=== PATIENT | female | born 1985 | race Two or more races ===

== ENCOUNTER 2017-06-05 13:43 | Inpatient (IN) | payer MEDICAID, MEDICARE ==
[~2017-06-05] VITALS: Ht 152.4 cm; Wt 50.8 kg
[2017-06-05] MEDS ORDERED: MORPHINE SULFATE 2 MG/1 ML DISP.SYRIN IV ONE (14:15)
[2017-06-05] MEDS ORDERED: ONDANSETRON 4 MG/2 ML VIAL IV ONE (14:15)
[2017-06-05] MEDS ORDERED: IV NORMAL SALINE 1000 ML BAG IV ONE ×2 (14:15→20:45)
[2017-06-05] MEDS ORDERED: PANTOPRAZOLE SODIUM 40 MG VIAL IV ONE (14:15)
[2017-06-05] MEDS ORDERED: MORPHINE SULFATE 4 MG/1 ML DISP.SYRIN ONE (14:39)
[2017-06-05] MEDS ORDERED: ONDANSETRON 4 MG/2 ML VIAL ONE (14:40)
[2017-06-05] MEDS ORDERED: PANTOPRAZOLE SODIUM 40 MG VIAL ONE (14:41)
[2017-06-05 14:46] LABS: BASOPHILS % (AUTO) 0.2 % (0.0-2.0); EOSINOPHILS % (AUTO) 0.3 % (0.0-7.0); HEMOGLOBIN 13.1 g/dL (10.9-14.3); LYMPHOCYTES # (AUTO) 0.8 K/uL (20.0-40.0); LYMPHOCYTES % (AUTO) 6.3 % (20.5-51.5); MEAN CORPUSCULAR HGB CONC 31 g/dL (32.3-35.6); MEAN CORPUSCULAR VOLUME 79.9 fL (75.5-95.3); MONOCYTES # (AUTO) 0.7 K/uL (2.0-10.0); NEUTROPHILS # (AUTO) 11.4 K/uL (1.8-8.9); NEUTROPHILS % (AUTO) 88.2 % (38.5-71.5); PLATELET COUNT (AUTO) 468 K/uL (179-408); RED BLOOD CELL COUNT(AUTO) 5.25 MIL/uL (3.63-4.92); WHITE BLOOD COUNT (AUTO) 12.9 K/uL (3.8-11.8)
[2017-06-05 14:57] LABS: CREATININE 1.3 mg/dL (0.6-1.3); POTASSIUM 4.2 mmol/L (3.5-5.1)
[2017-06-05 15:07] LABS: BILIRUBIN,DIRECT 0.1 mg/dL (0.0-0.2); BILIRUBIN,TOTAL 0.4 mg/dL (0.2-1.0); TOTAL PROTEIN, SERUM 9.2 g/dL (6.4-8.2)
[2017-06-05 21:30] LABS: *BILIRUBIN,URIN NEGATIVE (NEGATIVE); *BLOOD, URINE NEGATIVE (NEGATIVE); *CLARITY,URINE SLIGHTLY CLOUDY (CLEAR); *COLOR,URINE YELLOW (YELLOW); *KETONES,URINE NEGATIVE (NEGATIVE); *PROTEIN,URINE 1+ (NEGATIVE); *UROBILINOGEN,URINE 0.2 E.U./dl (NORMAL); LEUKOCYTE ESTERASE ,URINE 1+ (NEGATIVE); NITRITE, URINE NEGATIVE (NEGATIVE); PH,URINE 5.5 (5.0-8.0); UGLUCOSE NEGATIVE (NEGATIVE)
--- NOTE | 2017-06-05 21:46 | NUR ---
MSE COMPLETED, ADMIT ORDER WRITTEN, BELONGINGS LIST DONE, SBAR REPT TO [facility]-2ND FLOOR.
[2017-06-05 22:01] LABS: BACTERIA,URINE FEW /HPF (NONE SEEN); MUCUS,URINE MANY /LPF (0-FEW); SQUAMOUS EPITHELIAL CELL,UR MODERATE /HPF (NONE SEEN)
--- NOTE | 2017-06-05 22:20 | NUR ---
RECEIVED PT FROM ER BY Remy FINLEY. PT. IS AWAKE , ALERT AND ORIENTED. PT IS ADMITTED ON MED/SURG UNDER THE CARE OF DR. BECKMAN/ [facility]. DX: ABDOMINAL PAIN. BELONGING LIST DONE.ADMISSION PROCESS AND CARE PLAN INITIATED.SAFETY AND COMFORT PROVIDED. CALL LIGHT WITHIN REACH. WILL CONTINUE TO MONITOR.
[2017-06-05] MEDS ORDERED: IV NS 1000 ML 1,000 ML IV PRN (22:32)
[2017-06-05 22:42] VITALS: BP 113/78
[2017-06-05] MEDS ORDERED: ZOLPIDEM 5 MG TABLET PO PRN (22:45)
[2017-06-05] MEDS ORDERED: ONDANSETRON 4 MG/2 ML VIAL IV PRN (22:45)
[2017-06-05] MEDS ORDERED: Z GUARD REMEDY PASTE 57 GM TUBE TOP PRN (22:45)
[2017-06-05] MEDS ORDERED: MORPHINE SULFATE 2 MG/1 ML DISP.SYRIN IV PRN (22:45)
[2017-06-05] MEDS ORDERED: CEFTRIAXONE 1 G in IV DEXTROSE 5% 50 ML IV SCH (22:45)
[2017-06-05] MEDS ORDERED: MAGNESIUM HYDROXIDE 30 ML LIQUID UDC PO PRN (22:45)
[2017-06-05] MEDS ORDERED: HYDROCODONE/APAP 5-325MG TABLET PO PRN (22:45)
[2017-06-05] MEDS ORDERED: ACETAMINOPHEN 325 MG TABLET PO PRN (22:45)
[2017-06-06] MEDS ORDERED: CEFTRIAXONE 1 G VIAL ONE (02:04)
[2017-06-06 04:29] VITALS: BP 111/72
--- NOTE | 2017-06-06 05:00 | NUR ---
PT ASLEEP ON BED. PT VITAL SIGNS WNL. PT IV INTACT AND PATENT. CALL LIGHT WITHIN REACH. SAFETY AND COMFORT PROVIDED.
[2017-06-06] MEDS ORDERED: MORPHINE SULFATE 4 MG/1 ML DISP.SYRIN IV PRN ×2 (07:15→16:45)
[2017-06-06 07:38] LABS: BASOPHILS % (AUTO) 0.6 % (0.0-2.0); EOSINOPHILS # (AUTO) 0.1 K/uL (0.0-0.7); EOSINOPHILS % (AUTO) 1.7 % (0.0-7.0); HEMOGLOBIN 11.7 g/dL (10.9-14.3); LYMPHOCYTES # (AUTO) 1.7 K/uL (20.0-40.0); LYMPHOCYTES % (AUTO) 33.8 % (20.5-51.5); MEAN CORPUSCULAR HEMOGLOBIN 25.4 uug (24.7-32.8); MEAN CORPUSCULAR HGB CONC 32 g/dL (32.3-35.6); MONOCYTES # (AUTO) 0.3 K/uL (2.0-10.0); MONOCYTES % (AUTO) 6.8 % (0.0-11.0); NEUTROPHILS # (AUTO) 2.8 K/uL (1.8-8.9); NEUTROPHILS % (AUTO) 57.1 % (38.5-71.5); PLATELET COUNT (AUTO) 412 K/uL (179-408); RED BLOOD CELL COUNT(AUTO) 4.58 MIL/uL (3.63-4.92)
[2017-06-06 07:41] LABS: CREATININE 0.6 mg/dL (0.6-1.3); MAGNESIUM 1.5 mg/dL (1.8-2.4); PHOSPHOROUS 3.5 mg/dL (2.5-4.9); POTASSIUM 3.5 mmol/L (3.5-5.1)
[2017-06-06 07:47] LABS: THYROID STIMULATING HORMONE 0.475 mIU/mL (0.358-3.740)
[2017-06-06 08:00] LABS: HEMATOCRIT 36.2 % (31.2-41.9)
[2017-06-06] MEDS ORDERED: PANTOPRAZOLE SODIUM 40 MG VIAL IV SCH (09:00)
--- NOTE | 2017-06-06 09:00 | NUR ---
awake alert and oriented, denies of abdominal pain, no n/v, explained plan of care- verbalized understanding, call light within reach, up and about in the room, appetite good, voiding qs
[2017-06-06 11:02] VITALS: BP 97/70
--- NOTE | 2017-06-06 13:00 | NUR ---
seen by Dr Elias- to be d/cd home- pt states friend to come and pick her up
[2017-06-06] MEDS ORDERED: MAGNESIUM OXIDE 400 MG TABLET PO ONE (14:15)
--- NOTE | 2017-06-06 15:00 | NUR ---
saline lock removed- no swelling/redness noted on site, took shower and tolerated well, ambulated in the hallway
[2017-06-06 15:05] VITALS: BP 104/68
--- NOTE | 2017-06-06 16:00 | NUR ---
discharge instructions given- verbalized understanding, friend here
--- NOTE | 2017-06-06 16:10 | NUR ---
escorted to car ambulatory, in stable condition under friend's care, all belongings with her
[2017-06-06] MEDS ORDERED: CEFTRIAXONE 1 G in IV DEXTROSE 5% 50 ML IV SCH (23:00)
== END 2017-06-06 16:10 | disposition home or self-care (01) | DRG 690 ==
LOC: ER 13:45 → TELE 21:53 → MED 06-06 00:43
PROVIDERS: ADMIT Nurse Practitioner Acute Care; ATTEND Nurse Practitioner Acute Care
DX: N39.0 Urinary tract infection, site not specified (principal); E27.8 Other specified disorders of adrenal gland; K51.90 Ulcerative colitis, unspecified, without complications; K63.89 Other specified diseases of intestine; Z59.0 Homelessness; B96.89 Other specified bacterial agents as the cause of diseases classified elsewhere; Z90.49 Acquired absence of other specified parts of digestive tract; N83.209 Unspecified ovarian cyst, unspecified side; F12.20 Cannabis dependence, uncomplicated; R91.1 Solitary pulmonary nodule; R59.1 Generalized enlarged lymph nodes
CPT/HCPCS: 36415; 71045; 74021; 83690; 83735; 84100; 84443; 84703; 85025; 93005; A4663; C9113; J0696; J2270; J2405; J3490; J7030; J7060

== ENCOUNTER 2017-09-05 04:34 | Emergency (ER) | payer SELFPAY ==
[~2017-09-05] VITALS: Ht 162.6 cm; Wt 49.9 kg
--- NOTE | 2017-09-05 04:55 | NUR ---
Patient brought in by rescue, c/o abdominal pain, nausea, vomiting, and diarrhea x 2 days, reports dehydration and not feeling well.
--- NOTE | 2017-09-05 05:00 | NUR ---
Dr. Rodriguez at bedside for MSE.
[2017-09-05] MEDS ORDERED: KETOROLAC TROMETHAMINE 15 MG INJ ONE (05:12)
[2017-09-05] MEDS ORDERED: METOCLOPRAMIDE HCL 10 MG/2 ML VIAL ONE (05:13)
[2017-09-05] MEDS ORDERED: KETOROLAC TROMETHAMINE 15 MG INJ IV ONE (05:15)
[2017-09-05] MEDS ORDERED: METOCLOPRAMIDE HCL 10 MG/2 ML VIAL IV ONE (05:15)
[2017-09-05] MEDS ORDERED: IV NORMAL SALINE 1000 ML BAG IV ONE (05:15)
--- NOTE | 2017-09-05 05:26 | NUR ---
Xray at bedside.
--- NOTE | 2017-09-05 05:34 | NUR ---
Lab at bedside.
[2017-09-05 05:37] LABS: BASOPHILS % (AUTO) 0.6 % (0.0-2.0); HEMATOCRIT 48.4 % (31.2-41.9); HEMOGLOBIN 15.7 g/dL (10.9-14.3); LYMPHOCYTES # (AUTO) 1.4 K/uL (20.0-40.0); LYMPHOCYTES % (AUTO) 20.5 % (20.5-51.5); MEAN CORPUSCULAR HEMOGLOBIN 25.6 uug (24.7-32.8); MEAN CORPUSCULAR HGB CONC 32 g/dL (32.3-35.6); MEAN CORPUSCULAR VOLUME 78.8 fL (75.5-95.3); MONOCYTES # (AUTO) 0.4 K/uL (2.0-10.0); MONOCYTES % (AUTO) 6.3 % (0.0-11.0); NEUTROPHILS # (AUTO) 4.8 K/uL (1.8-8.9); NEUTROPHILS % (AUTO) 72.6 % (38.5-71.5); PLATELET COUNT (AUTO) 391 K/uL (179-408); RED BLOOD CELL COUNT(AUTO) 6.13 MIL/uL (3.63-4.92); WHITE BLOOD COUNT (AUTO) 6.6 K/uL (3.8-11.8)
[2017-09-05 05:48] LABS: BILIRUBIN,DIRECT 0.1 mg/dL (0.0-0.2); BILIRUBIN,TOTAL 0.4 mg/dL (0.2-1.0); CREATININE 1.5 mg/dL (0.6-1.3); POTASSIUM 5.1 mmol/L (3.5-5.1); TOTAL PROTEIN, SERUM 10.6 g/dL (6.4-8.2)
--- NOTE | 2017-09-05 06:20 | NUR ---
Patient sleeping in bed, no acute signs of distress.
--- NOTE | 2017-09-05 06:36 | NUR ---
Patient out of ER for CT.
--- NOTE | 2017-09-05 06:53 | NUR ---
Passed SBAR report to Nay OSORIO.
--- NOTE | 2017-09-05 06:54 | NUR ---
Patient back to ER from CT.
[2017-09-05] MEDS ORDERED: IV NS 1000 ML 1,000 ML IV ONE (07:30)
[2017-09-05 07:38] LABS: *BILIRUBIN,URIN NEGATIVE (NEGATIVE); *BLOOD, URINE 3+ (NEGATIVE); *CLARITY,URINE CLOUDY (CLEAR); *COLOR,URINE YELLOW (YELLOW); *KETONES,URINE NEGATIVE (NEGATIVE); *UROBILINOGEN,URINE 0.2 E.U./dl (NORMAL); LEUKOCYTE ESTERASE ,URINE 2+ (NEGATIVE); NITRITE, URINE NEGATIVE (NEGATIVE); UGLUCOSE NEGATIVE (NEGATIVE)
[2017-09-05 08:16] LABS: *PROTEIN,URINE 2+ (NEGATIVE)
[2017-09-05 08:17] LABS: BACTERIA,URINE MANY /HPF (NONE SEEN)
[2017-09-05 08:18] LABS: SQUAMOUS EPITHELIAL CELL,UR MANY /HPF (NONE SEEN)
--- NOTE | 2017-09-05 08:18 | NUR ---
po challenged the pt tolerated well.
--- NOTE | 2017-09-05 08:21 | NUR ---
[facility] provided for pt per pt request and md wallace
--- NOTE | 2017-09-05 08:58 | NUR ---
Patient discharged to home in stable conditon. Written and verbal after care instructions given. Patient verbalizes understanding of instructions.pt walks in steady gait, says feels better, denies nausea.
[2017-09-05 09:02] VITALS: BP 101/65
== END 2017-09-05 09:03 | disposition home or self-care (01) ==
LOC: ER 04:38
DX: E86.0 Dehydration (principal); R10.31 Right lower quadrant pain; Z88.8 Allergy status to other drugs, medicaments and biological substances; Z59.0 Homelessness
CPT/HCPCS: 36415; 70030-TC; 71045; 74021; 83605; 83690; 84703; 85025; 87040; 93005; A4663; J1885; J2765; J7030